=== PATIENT | female | born 1990 | race Caucasian/White ===

== ENCOUNTER 2017-01-31 18:41 | Emergency (ER) | payer OTHER ==
[~2017-01-31] VITALS: Ht 160 cm; Wt 77.6 kg
== END 2017-01-31 21:58 | disposition home or self-care (01) ==
LOC: ED 18:41
DX: K52.9 Noninfective gastroenteritis and colitis, unspecified (principal)
CPT/HCPCS: 80053; 85025; 96361; 96374; 99283; J2405; J7030

== ENCOUNTER 2018-08-15 17:23 | Emergency (ER) | payer OTHER, BC ==
[~2018-08-15] VITALS: Ht 160 cm; Wt 77.6 kg
[2018-08-15] MEDS ORDERED: ZOLOFT100 MG PO (17:38)
== END 2018-08-15 18:14 | disposition home or self-care (01) ==
LOC: ED 17:23
DX: R55 Syncope and collapse (principal)
CPT/HCPCS: 99283

== ENCOUNTER 2025-06-15 06:29 | Observation (INO) | payer OTHER ==
[~2025-06-15] VITALS: Ht 160 cm; Wt 93.6 kg
[2025-06-15] VITALS (9 sets, daily range): BP systolic 103–120; BP diastolic 51–85
[~2025-06-15 06:29] MED LIST: ZOLOFT100 MG PO
[2025-06-15] MEDS ORDERED: PHENTERMINE HCL30 MG PO (06:41)
[2025-06-15 06:49] LABS: BASOPHILS 0.2 % (0.1-1.2); EOSINOPHILS 4.4 % (0.7-5.8); LYMPHOCYTES 34.1 % (19.3-51.7); MCH 29.8 PG (25.6-32.2); MCHC 32.9 g/dL (32.2-35.5); MCV 90.4 fL (79.4-94.8); MONOCYTES 5.6 % (4.7-12.5); NEUTROPHILS 55.5 % (34.0-71.1); RBC 4.80 M/uL (3.93-5.22)
[2025-06-15 07:08] LABS: ALT (SGPT) 75.0 U/L (14-59); AST (SGOT) 35.0 U/L (15-37); GLOMERULAR FILTRATION RATE,EST 87.0 mL/min (>60); PROTEIN, TOTAL 7.6 g/dL (6.4-8.2); UREA NITROGEN 12.0 mg/dL (7-18)
[2025-06-15] MEDS ORDERED: MORPHINE SULFATE 4 MG/ML VIAL IV ONE (07:15)
[2025-06-15] MEDS ORDERED: SODIUM CHLORIDE 0.9% 1,000 ML IV PRN (07:30)
[2025-06-15] MEDS ORDERED: FAMOTIDINE 20 MG/ 2 ML VIAL IV ONE (08:30)
[2025-06-15] MEDS ORDERED: KETOROLAC TROMETHAMINE 15 MG/ML VIAL IV ONE (08:30)
[2025-06-15] MEDS ORDERED: HYDROmorphone HCL 1 MG/ML SYR IV PRN (08:30)
[2025-06-15] MEDS ORDERED: CEFAZOLIN SODIUM 2 GM in SODIUM CHLORIDE 0.9% 100 ML IV ONE (08:30)
[2025-06-15] MEDS ORDERED: PIPERACILLIN/TAZOBACTAM 4.5 GM in SODIUM CHLORIDE 0.9% 100 ML IV ONE (08:30)
[2025-06-15] MEDS ORDERED: LACTATED RINGER'S 1,000 ML IV SCH ×2 (08:30→09:30)
[2025-06-15 09:00] LABS: BLOOD/HGB, URINE NEGATIVE (Negative); KETONE, URINE NEGATIVE (Negative); LEUK ESTERASE, URINE NEGATIVE (negative); NITRITE, URINE NEGATIVE (negative)
--- NOTE | 2025-06-15 09:29 | NUR ---
DR KASPER IN TO SEE PT AND MOTHER ARE PRESENT. MARTHA DISCUSSED WELL SURGERY PT VERBALIZES UNDERSTANDING ALL QUESTIONS ANSWERED. PT IS NPO AGREES SHE IS COMFORTABLE
[2025-06-15] MEDS ORDERED: KETOROLAC TROMETHAMINE 30 MG/ML VIAL IV PRN ×2 (09:30→14:00)
[2025-06-15] MEDS ORDERED: MORPHINE SULFATE 10 MG/ML VIAL IV PRN (09:30)
[2025-06-15] MEDS ORDERED: FAMOTIDINE 20 MG/ 2 ML VIAL IV SCH (09:32)
--- NOTE | 2025-06-15 10:33 | NUR ---
PT ORIENTED TO ROOM AND BED CONTROLS, CALL LIGHT ON LAP. MEDICATED FOR INCREASING ABDOMINAL PAIN. ORAL CARE ITEMS PROVIDED. JANNETTE BOOKLETT PROVIDED PT DENIES FURTHER QUESTIONS.
[2025-06-15] MEDS ORDERED: SEVOFLURANE 250 ML BTL INH ONE (10:57)
--- NOTE | 2025-06-15 11:02 | NUR ---
INTO SEE PATIENT. PERSONAL HEALTH INFORMATION REVIEWED. PATIENT LIVES IN A HOME WITH . 5 STEPS INTO THE HOME. DENIES ANY DIFFCULTY DOING THEM. PATIENT DOES NOT USE DME. DRIVES. DENIES ANY DIFFCULTY PAYING UTILITIES OR OBTAINING FOOD. NO FUTHER CM NEEDS AT THIS TIME. PATIENT TO ENVIRONMENTAL COMMUNICATIONS SPECIALIST WHEN MEDICALLY READY FOR DISCHARGE.
--- NOTE | 2025-06-15 11:21 | NUR ---
PT RESTING EYES CLOSED
--- NOTE | 2025-06-15 12:15 | NUR ---
Provided CHG wipedown. No other needs expressed by Pt. Left with RN and surgery RN.
--- NOTE | 2025-06-15 12:18 | NUR ---
PT TO O/R VIA BRYANT
[2025-06-15] MEDS ORDERED: KETAMINE in NS 50 MG/5 ML SYR ONE (12:19)
[2025-06-15] MEDS ORDERED: fentaNYL citrate 100 MCG/2 ML VIAL ONE (12:19)
[2025-06-15] MEDS ORDERED: DEXAMETHASONE SOD PHOS 4 MG/ML VIAL ONE (12:19)
[2025-06-15] MEDS ORDERED: LIDOCAINE HCL 2% 5 ML SDV ONE ×2 (12:19→12:20)
[2025-06-15] MEDS ORDERED: ACETAMINOPHEN 1,000 MG/100 ML VIAL ONE (12:19)
[2025-06-15] MEDS ORDERED: ROCURONIUM BROMIDE 50 MG/5 ML SYR ONE (12:19)
[2025-06-15] MEDS ORDERED: MAGNESIUM SULFATE 1 GM/2 ML VIAL ONE (12:21)
[2025-06-15] MEDS ORDERED: SODIUM CHLORIDE 0.9% 20 ML IV ONE (12:32)
[2025-06-15] MEDS ORDERED: SODIUM CHLORIDE 0.9% 40 ML IV ONE (12:32)
[2025-06-15] MEDS ORDERED: MIDAZOLAM HCL 2 MG/2 ML VIAL ONE (12:56)
--- NOTE | 2025-06-15 13:08 | NUR ---
UR CLINICAL REVIEW: MCG-PER MCG REVIEW MEETS OBS FOR LAP JANNETTE WITH NEED FOR SURGICAL INTERVENTION, PAIN CONTROL MISC COMMERCIAL OBS 06/15/25 @ 0933 ORDER MATCHES REG WILL AWAIT INSURANCE NOTIFICATION TO FAX CLINICALS DISCHARGE TO HOME WHEN STABLE 06/16/25
[2025-06-15] MEDS ORDERED: NALOXONE HCL 0.4 MG SYR IV PRN (14:00)
[2025-06-15] MEDS ORDERED: fentaNYL citrate 50 MCG/ML SDV IV PRN (14:00)
[2025-06-15] MEDS ORDERED: IBLOOD GLUCOSE TEST STRIP 1 EA TEST VI PRN (14:00)
[2025-06-15] MEDS ORDERED: CEFAZOLIN SODIUM 3 GM in SODIUM CHLORIDE 0.9% 100 ML IV SCH (14:00)
[2025-06-15] MEDS ORDERED: SUGAMMADEX SODIUM 200 MG/2 ML ML ONE (14:05)
--- NOTE | 2025-06-15 14:30 | NUR ---
06/15/25 1430 Lady Contreras 1420: PT ARRIVED TO PACU VIA STRETCHER. PT ON 6L VIA MASK. PT NON AROUSABLE AT THIS TIME. 1430: PT REMAINS NON AROUSBALE AT THIS TIME AND ON 6L VIA MASK.
--- NOTE | 2025-06-15 15:35 | NUR ---
PT TO FLOOR WITH JORGE PETER. PT DROWSY BUT ORIENTED. VS STABLE. DENIES NAUSEA OR PAIN ATT. MOTHER IN ROOM, CALL LIGHT IN REACH.
--- NOTE | 2025-06-15 15:39 | NUR ---
medications reconciled using pharmacy records and patient interview
--- NOTE | 2025-06-15 15:50 | NUR ---
PT RESTING SOUNDLY AWAKENS TO VOICE DENIES PAIN OR NEEDS OF. FRESH H20 TO BEDSIDE CALL LIGHT IN REACH SCD'S AND CPOX IN PLACE
[2025-06-15] MEDS ORDERED: OXYCODONE/APAP 7.5/325 TAB PO PRN ×2 (17:00→19:45)
--- NOTE | 2025-06-15 17:15 | NUR ---
PT MORE AWAKE NOW, FAMILY PRESENT X3. STATES SHE IS READY TO EAT SOMETHING BUT THEN BECOMES MORE NAUSEATED BEFORE MEAL ARRIVES. CRACKERS JELLO AND ICE WATER WATER AT BEDSIDE. FAN AND COOL CLOTH IN PLACE. CONTACTED DR KASPER FOR PO PAIN MEDS. 2 MG MORPHINE ADMINISTERED EARLIER WILL START PO WHEN PT CAN TOLERATE IT
--- NOTE | 2025-06-15 17:16 | NUR ---
HOURLY ROUNDING PATIENT CALLED TO USE THE BATHROOM, ASSISTED PATIENT TO THE BATHROOM, PATIENT THEN COMPLAINED OF NAUSEA WHEN GETTING BACK INTO THE BED, AND OF FEELING OVERHEADTED. COLD TOWEL WAS GIVEN AND AN ICE PACK WAS GIVEN FOR PATIENT HEAD. NURSE HAS BEEN NOTIFED OF THE NAUSEA
--- NOTE | 2025-06-15 17:57 | NUR ---
PT EATING SOME CRACKERS, JELLO, AND ICE TREAT. PAIN MED AT BEDSIDE SHE STATES SHE WILL TAKE IT IN A FEW MINUTES WHEN SHE IS "SURE IT WILL STAY DOWN" DENIES WANT OF BROTH OR OTHER ITEMS. FAMILY HAVE GONE HOME FOR THE NIGHT PT REPORTS BEING VERY SLEEPY JUST WANTS TO NAP
--- NOTE | 2025-06-15 18:27 | NUR ---
HOURLY ROUNDING PATIENT LAYING SUSPINE POSTION IN BED, PATIENT HAS A VISITOR. NO REQUEST AT THIS TIME CALL LIGHT HAS BEEN PLACED WITHIN REACH
--- NOTE | 2025-06-15 18:34 | NUR ---
PT TOLERATES PAIN PILL, AGREES IT HAS HELPED. NO EMESIS NO FURTHER C/O NAUSEA. PT RESTING ON HER SIDE EYES CLOSED
--- NOTE | 2025-06-15 18:55 | OR ---
[facility] [address], [place] [address] Signed DATE OF OPERATION: 06/15/2025 SURGEON: Radha Kasper MD PREOPERATIVE DIAGNOSES: 1. Acute calculous cholecystitis. 2. Obesity. POSTOPERATIVE DIAGNOSES: 1. Acute calculous cholecystitis. 2. Obesity. PROCEDURES: Laparoscopic cholecystectomy with intraoperative cholangiogram and surgeon directed fluoroscopy. ANESTHESIA: General endotracheal, Jaspal Zhao, BAR POINTER and local 10 mL of 0.25% Marcaine with epinephrine. INDICATION: This 34-year-old white woman presented to the emergency room at approximately 3 a.m. with severe right upper abdominal and back pain. Evaluation included a gallbladder ultrasound showing at least one gallstone and edema of the gallbladder wall. She has been fluid resuscitated, given intravenous antibiotics and now to undergo cholecystectomy preferred by laparoscopic approach. She understands the risk of bleeding, infection, and need for open procedure, as well as possible need for common duct exploration and wished to proceed. Special risks of bleeding, infection, bile duct injury, and so forth were also reviewed. Understanding that, she wished to proceed. FINDINGS: The gallbladder was tense and edematous and inflamed as was expected. The excision went without problem. The gallbladder once opened show at least one larger sized stone nearly 2 cm and another small stone. Mucosa was acutely inflamed. Cholangiogram was normal. There was no evidence of common duct stone, biliary anomaly, or other abnormality. The liver was reasonably normal despite her obesity. DESCRIPTION OF PROCEDURE: The patient was brought to the operating room, given a general endotracheal anesthetic. Preoperative antibiotic Ancef had been given. Sequential compression device stockings Electronically Signed By: RADHA KASPER MD 06/15/25 1870 PATIENT NAME: HAM OBREGON OPERATIVE REPORT DATE OF : 88 REPORT #: [id number] PHYSICIAN: RADHA KASPER MD PCP: HOLLY RAYMUNDO PA-C REPORT IS CONFIDENTIAL AND NOT TO BE RELEASED WITHOUT AUTHORIZATION [facility] [address], [place] [address] Signed used. The abdomen was prepared with a chlorhexidine solution after general endotracheal anesthesia and draped sterilely. An infraumbilical incision was made and using an open Wanda cannula technique, pneumoperitoneum was achieved to a level of 14 mmHg of carbon dioxide gas. Intra-abdominal inspection showed no sign of ascites or carcinomatosis. The gallbladder was tense and edematous and the liver looked reasonably normal. Three additional trocars were placed in usual configuration in the subxiphoid, right midclavicular, and right anterior axillary line. Gallbladder was elevated cephalad and retracted laterally and using blunt and electrocautery dissection, the triangle of Calot was dissected free identifying well the cystic duct and cystic artery. A clip was applied across the cystic duct and gallbladder junction and transverse choledochotomy made in the cystic duct. Egress of clear bile was noted. Using the Dos Santos type cholangiocatheter, intraoperative cholangiography was undertaken showing free flow of contrast in biliary tree with prompt emptying into the duodenum and good retrograde filling of the biliary tree. There was no sign of biliary anomaly. There were no filling defects or other problems. The cystic duct was triply clipped and divided. The gallbladder was dissected free in a retrograde fashion using electrocautery. Gallbladder was extracted through the infraumbilical port site without problem, opened on the back table and found to have at least one larger stone in the infundibulum and a smaller stone as well. The mucosa was subacutely inflamed. Inspection of the subhepatic space showed no sign of bile leak, bleeding, or other problems. Additional irrigation of the abdomen was undertaken. Excess irrigation fluid suctioned free. The trocars were removed under direct visualization showing no sign of bleeding. The infraumbilical fascial incision was reapproximated with interrupted 0 Vicryl suture. The skin was closed with interrupted 3-0 Vicryl after application of 10 mL of 0.25% Marcaine with epinephrine. Steri-Strips were applied. The patient was extubated and transferred to the recovery room in good condition having suffered no complications. Sponge, needle, and instrument counts were reported as correct x3. Radha Kasper MD /MODL /[id number] cc: Dr. Jaden June Electronically Signed By: RADHA KASPER MD 06/15/25 1855 PATIENT NAME: HAM OBREGON OPERATIVE REPORT DATE OF : 88 REPORT #: [id number] PHYSICIAN: RADHA KASPER MD PCP: HOLLY RAYMUNDO PA-C REPORT IS CONFIDENTIAL AND NOT TO BE RELEASED WITHOUT AUTHORIZATION [address] [address] Signed TENA Mccoy Copies: ~ Electronically Signed By: RADHA KASPER MD 06/15/25 1855 PATIENT NAME: EVETTE OBREGONJoel RAY OPERATIVE REPORT DATE OF : 88 REPORT #: [id number] PHYSICIAN: RADHA KASPER MD PCP: HOLLY RAYMUNDO PA-C REPORT IS CONFIDENTIAL AND NOT TO BE RELEASED WITHOUT AUTHORIZATION
--- NOTE | 2025-06-15 19:32 | NUR ---
REPORT RECEIVED FROM DAY SHIFT RN. PT LYING IN BED ALERT AND ORIENTED. DENIES NEEDS. WHITE BOARD UPDATED. CALL LIGHT IN REACH.
[2025-06-15] MEDS ORDERED: IBUPROFEN600 MG PO (19:35)
[2025-06-15] MEDS ORDERED: OXYCODON-ACETA1 EAC2 PO (19:35)
[2025-06-15] MEDS ORDERED: ACETAMINOPHEN500 MG PO (19:35)
[2025-06-15] MEDS ORDERED: ACETAMINOPHEN 500 MG TAB PO PRN (19:45)
[2025-06-15] MEDS ORDERED: IBUPROFEN 600 MG TAB PO PRN (19:45)
[2025-06-15] MEDS ORDERED: ONDANSETRON HCL4 MG PO (20:11)
--- NOTE | 2025-06-15 20:40 | NUR ---
PT AWAKE IN BED. VS OBTAINED. PT REPORTS NAUSEA RELATED TO ANXIETY WITH ANTICIPATED PAIN. PT REPORTS CURRENT PAIN /10. PRN FOR PAIN AND NAUSEA ADMIN PER EMAR. ICE PACK PROVIDED. BOWEL TONES ACTIVE. PT REPORTS FLATUS. ABD SOFT. LAP SITES X 4 WITH STERI STRIPS INTACT. DRY DRAINAGE NOTED. PT WAITING FOR RIDE TO DISCHARGE. NO FURTHER NEEDS. CALL LIGHT IN REACH.
[2025-06-15] MEDS ORDERED: OXYCODONE/ACETAMINOPHEN 1 TAB HOME.PACK PO ONE (20:45)
--- NOTE | 2025-06-15 20:50 | NUR ---
VERBAL INSTRUCTIONS AND DISCHARGE PACKET PROVIDED TO PT. UNDERSTANDING VERBALIZED. PT DENIES QUESTIONS, CONCERNS, OR NEEDS. PT LEFT WITH CALL LIGHT IN REACH.
--- NOTE | 2025-06-15 21:05 | NUR ---
IV IN LEFT AC DC'D WNL. TAKE HOME PACK PROVIDED WITH INSTRUCTIONS. ALL QUESTIONS ANSWERED. PT LEFT FLOOR WITH ALL PERSONAL BELONGINGS VIA WHEELCHAIR WITH AUXILIARY POWER EQUIPMENT OPERATOR TO PERSONAL VEHICLE.
--- NOTE | 2025-06-17 12:50 | HP ---
[facility] [address] [place], [place] [address] Signed ADMISSION DATE: 06/15/2025 REASON FOR ADMISSION: Acute calculous cholecystitis. HISTORY OF PRESENT ILLNESS: This morbidly obese 34-year-old woman (BMI 36.6) has underlying polycystic ovary syndrome. She presented to emergency room in the dispensary attendant hours, having been awakened by right subcostal and right subscapular pain, which was rather considerable. She was evaluated in the emergency room by Dr. June, had clinical findings consistent with acute calculous cholecystitis. Gallbladder ultrasound confirmed at least one large stone and findings consistent with acute calculous cholecystitis. Her ultrasound interpretation included gallstone with a nonmobile 1.6 cm gallstone in the infundibulum and mild gallbladder wall thickening and a positive sonographic Romero sign as well as fatty liver. My review of the ultrasound confirms these findings also. 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 PAST MEDICAL HISTORY: Notable for obesity as well as childbirth x2 and polycystic ovary syndrome. ALLERGIES: She has allergies to venlafaxine. PAST SURGICAL HISTORY: Includes a in 2015. MEDICATIONS: 1. Her medications include phentermine. 2. She has discontinued Zoloft. She does have underlying anxiety she says. SOCIAL HISTORY: She is . She is accompanied by her and her mother. She works for [employer] in [place]. REVIEW OF SYSTEMS: Denies any shortness of breath or chest pain. Has had no dysphagia or dysuria. Her pain is mostly in the right subcostal and subscapular area. PHYSICAL EXAMINATION: GENERAL: Large white woman who looks to be nontoxic. Electronically Signed By: RADHA KASPER MD 06/17/25 0330 PATIENT NAME: HAM OBREGON HISTORY AND PHYSICAL DATE OF : 88 REPORT #: [id number] PHYSICIAN: RADHA KASPER MD PCP: HOLLY RAYMUNDO PA-C REPORT IS CONFIDENTIAL AND NOT TO BE RELEASED WITHOUT AUTHORIZATION [facility] [address] [place], [place] [address] Signed VITAL SIGNS: Temperature 36.5, pulse 68, respirations 16, blood pressure 122/76, oxygen saturation on room air 99%. NECK: Trachea is midline. CHEST: Clear. HEART: Regular without murmur. ABDOMEN: Obese, but soft. There is tenderness in right upper abdomen. There is no ascites. She has no palpable mass. EXTREMITIES: Show no clubbing, cyanosis, or edema. LABORATORY STUDIES: Show a white count of 8.77, hematocrit 43.4. Chem profile is essentially normal, glucose 144, ALT 75, alkaline phosphatase 139, bilirubin 0.3. Beta HCG negative. Urinalysis is normal. ASSESSMENT: The patient has acute calculous cholecystitis. I discussed the pathophysiology of this problem with the patient and her family the use of the whiteboard. I would recommend cholecystectomy preferred by laparoscopic approach. The risk of bleeding, infection, bile duct injury, need for open surgery, need for common duct exploration using laparoscopic or open was all reviewed with the patient and family, they understand and wished to proceed. The patient will continue on IV antibiotics, n.p.o. status and IV fluids pending a plan for operation later today most likely. Radha Kasper MD JM/MODL /[id number] cc: TENA Solano Electronically Signed By: RADHA KASPER MD 06/17/25 1250 PATIENT NAME: FERNANDO OBREGONSIERRA RAY HISTORY AND PHYSICAL DATE OF : 88 REPORT #: [id number] PHYSICIAN: RADHA KASPER MD PCP: HOLLY RAYMUNDO PA-C REPORT IS CONFIDENTIAL AND NOT TO BE RELEASED WITHOUT AUTHORIZATION [address] [place], [place] [address] Signed Copies: ~ Electronically Signed By: RADHA KASPER MD 06/17/25 1250 PATIENT NAME: HAM OBREGON HISTORY AND PHYSICAL DATE OF : 88 REPORT #: [id number] PHYSICIAN: RADHA KASPER MD PCP: HOLLY RAYMUNDO PA-C REPORT IS CONFIDENTIAL AND NOT TO BE RELEASED WITHOUT AUTHORIZATION
== END 2025-06-15 21:05 | disposition home or self-care (01) ==
LOC: ED 06:29 → MS 06:30
PROVIDERS: Family Medicine; ADMIT Surgery; ATTEND Surgery
PROC: BF502Z0 Other Imaging of Bile Ducts using Fluorescing Agent, Intraoperative (ICD-10-PCS; 2025-06-15)
PROC: 0FT44ZZ Resection of Gallbladder, Percutaneous Endoscopic Approach (ICD-10-PCS; principal; 2025-06-15 12:00)
DX: K80.10 Calculus of gallbladder with chronic cholecystitis without obstruction (principal); Z88.8 Allergy status to other drugs, medicaments and biological substances
CPT/HCPCS: 00790; 36415; 74300; 76705; 80053; 81003; 83690; 83735; 84703; 85025; 96361; 96374; 96375; 96376; 99285-25; G0378; J0131; J0688; J1100; J1790; J1885; J2003; J2250; J2270; J2405; J2704; J3010; J3475; J3490; J7030; Q9967